=== PATIENT | male | born 1965 ===

== ENCOUNTER 2022-04-27 09:34 | Outpatient (CLI) | payer BC ==
[2022-04-27 12:51] LABS: Basophils % (Auto) 0.6 % (0.0-1.8); Eosinophils # (Auto) 0.2 K/mm3 (0.0-0.4); Hematocrit 46.4 % (35.5-45.6); Hemoglobin 15.4 gm/dl (11.8-15.2); Lymphocytes # (Auto) 1.8 K/mm3 (1.2-5.4); Lymphocytes % (Auto) 29.3 % (13.4-35.0); Mean Corpuscular HGB Conc 33 % (32-34); Mean Corpuscular Volume 90 fl (84-94); Monocytes # (Auto) 0.5 K/mm3 (0.0-0.8); Monocytes % (Auto) 7.8 % (0.0-7.3); Platelet Count 237 K/mm3 (140-440); Red Blood Count 5.13 M/mm3 (3.65-5.03); Red Cell Distribution Width 13.9 % (13.2-15.2)
[2022-04-27 13:23] LABS: Alanine Aminotransferase 33 units/L (7-56); Albumin 4.5 g/dL (3.9-5); BUN/Creatinine Ratio 20; Blood Urea Nitrogen 16 mg/dL (9-20); Calcium 9.4 mg/dL (8.4-10.2); Chol/HDL Ratio 4.97 %; HDL Cholesterol 42 mg/dL (40-59); Hemolysis Index 11; LDL Cholesterol,Direct 142 mg/dL (50-130)
== END 2022-04-27 09:35 | disposition home or self-care (01) ==
LOC: LABHHL 09:34
PROVIDERS: ATTEND Internal Medicine
DX: I10 Essential (primary) hypertension (principal); E55.9 Vitamin D deficiency, unspecified; E66.9 Obesity, unspecified; R53.1 Weakness
CPT/HCPCS: 36415; 80053; 80061; 82306; 84153; 84443; 85025